=== PATIENT | male | born 1955 | race Caucasian/White ===

== ENCOUNTER 2018-10-24 16:51 | Emergency (ER) | payer OTHER ==
[2018-10-24 17:11] VITALS: BP 132/88
[2018-10-24] MEDS ORDERED: Ketorolac INJ* 30 MG/ML 1 ML VIAL IM ONE (17:46)
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
[2018-10-24] MEDS: Cyclobenzaprine TAB* 10 MG PO ONE ×2 (18:38→18:46)
--- NOTE | 2018-10-25 15:43 | UC ---
- Progress Note Progress Note: xrays negative. no change. Course/Dx - Diagnoses Provider Diagnoses: Neck muscle strain, Shoulder pain, right, Degenerative disc disease, cervical Discharge - Sign-Out/Discharge Documenting (check all that apply): Post-Discharge Follow Up All imaging exams completed and their final reports reviewed: Yes - Discharge Plan Condition: Stable Disposition: HOME Prescriptions: Cyclobenzaprine TAB* [Flexeril 10 MG TAB*] 10 mg PO TID PRN #20 tab PRN Reason: Spasms - Neck methylPREDNISolone [Medrol Dosepak 4 MG*] 4 mg PO .SEE BRITTANY INSTRUCTION #1 brittany Naproxen TAB* [Naprosyn 250 mg TAB*] 250 mg PO Q8H PRN #30 tab PRN Reason: neck pain Patient Education Materials: Degenerative Disc Disease (ED) Referrals: Giorgio Aquino MD [Primary Care Provider] - 3 Days Additional Instructions: 1- Please take Naproxen PO as directed after meals for pain. Take Medrol dose brittany as directed to alleviate symptoms 2- Take Flexeril PO as directed for muscle spasm. Please do not drive while taking the medication. 3- Avoid strenuous exercise of heavy lifting. 4- Please follow up with your PCP or your Neurologist in 1 week if not improvement of symptoms, for further management. - Billing Disposition and Condition Condition: STABLE Disposition: Home
== END 2018-10-24 18:49 | disposition home or self-care (01) ==
LOC: UCEAST 16:51
DX: S16.1XXA Strain of muscle, fascia and tendon at neck level, initial encounter (principal); W50.1XXA Accidental kick by another person, initial encounter; Y92.159 Unspecified place in reform school as the place of occurrence of the external cause; Y99.0 Civilian activity done for income or pay; M50.322 Other cervical disc degeneration at C5-C6 level; M25.511 Pain in right shoulder; F41.9 Anxiety disorder, unspecified; Z87.891 Personal history of nicotine dependence
CPT/HCPCS: 72050; 96372; 99202; A9270-GY; G0463; J1885

== ENCOUNTER 2023-04-08 11:10 | Inpatient (IN) ==
[2023-04-08 11:57] LABS: ABS Eosinophils 0.1 10^3/uL (0.0-0.5); ABS Lymphocytes 1.2 10^3/uL (1.0-4.8); ABS Monocytes 0.6 10^3/uL (0.0-1.1); ABS Nucleated RBC 0.02 10^3/ul; Hematocrit 37.3 % (38-53); Hemoglobin 12.3 g/dL (13.2-16.3); Lymphocyte % 15.3 %; Mean Corpuscular Hemoglobin 31.9 pg (27-33); Mean Corpuscular Volume 96.6 fL (80-97); Mean Platelet Volume 6.9 fL (7.5-11.2); Nucleated Red Blood Cells % 0.2 /100 WBC (0.0-0.4); Platelet Count 307 10^3/uL (150-450); Red Blood Count 3.86 10^6/uL (4.06-5.63); Red Cell Distribution Width 14.3 % (12-17); White Blood Count 7.9 10^3/uL (3.6-10.2)
[2023-04-08 12:37] LABS: Albumin 4.3 g/dL (3.2-5.2); Albumin/Globulin Ratio 1.5 (1-3); Calcium 9.4 mg/dL (8.6-10.3); Creatinine, Serum 1.09 mg/dL (0.67-1.17); Globulin 2.8 g/dL (2-4); Potassium 4.7 mmol/L (3.5-5.0); Total Bilirubin 0.2 mg/dL (0.2-1.0); Total Protein 7.1 g/dL (6.4-8.9); eGFR CKD-EPI 74.9 (>60)
[2023-04-08] MEDS ORDERED: Iohexol 350 (CONTRAST) 500 ML MDV IV ONE (12:54)
[2023-04-08 13:35] LABS: High Sensitivity Troponin 1 Hr 130 pg/mL (<20)
[2023-04-08] MEDS: Heparin DRIP 25,000 UNITS BAG 25,000 UNITS/500 ML BAG IV SCH (14:27)
[2023-04-08] MEDS: Heparin 5000 UNITS/ML 1 mL VIAL IV SCH (14:28)
[2023-04-08 15:18] LABS: Creatinine, Serum 0.91 mg/dL (0.67-1.17)
[2023-04-08] MEDS: Venlafaxine XR 75 mg PO SCH (21:35)
[2023-04-09 02:55] LABS: ABS Eosinophils 0.1 10^3/uL (0.0-0.5); ABS Monocytes 0.5 10^3/uL (0.0-1.1); ABS Neutrophils 3.2 10^3/uL (1.5-7.6); ABS Nucleated RBC 0.02 10^3/ul; Eosinophil % 2.2 %; Hematocrit 31.6 % (38-53); Hemoglobin 10.5 g/dL (13.2-16.3); Lymphocyte % 34.8 %; Mean Corpuscular Hemoglobin 31.9 pg (27-33); Mean Corpuscular Hgb Conc 33.4 g/dL (31-36); Mean Corpuscular Volume 95.5 fL (80-97); Mean Platelet Volume 6.6 fL (7.5-11.2); Nucleated Red Blood Cells % 0.4 /100 WBC (0.0-0.4); Platelet Count 246 10^3/uL (150-450); Red Cell Distribution Width 14.4 % (12-17); White Blood Count 5.8 10^3/uL (3.6-10.2)
[2023-04-09 03:07] LABS: Calcium 8.3 mg/dL (8.6-10.3); Potassium 3.9 mmol/L (3.5-5.0)
[2023-04-09 03:12] LABS: Creatinine, Serum 0.77 mg/dL (0.67-1.17); eGFR CKD-EPI 98.7 (>60)
[2023-04-09] MEDS ORDERED: Benzocaine (plain) Lozenge 15 MG MT PRN (07:24)
[2023-04-09] MEDS: Heparin DRIP 25,000 UNITS BAG 25,000 UNITS/500 ML BAG IV SCH (08:14)
[2023-04-09] MEDS: Venlafaxine XR 75 mg PO SCH ×2 (08:20→22:14)
[2023-04-09] MEDS ORDERED: Venlafaxine XR 75 mg PO SCH (09:00)
[2023-04-09] MEDS: Heparin 5000 UNITS/ML 1 mL VIAL IV SCH (10:36)
[2023-04-09 10:44] LABS: % Iron Saturation 4 % (15-55); .Transferrin 384 mg/dL (203-362); Iron 22 ug/dL (50-212); Total Iron Binding Capacity 538 mcg/dL (250-450); Unsaturated Iron Binding 516 ug/dL
[2023-04-09 10:51] LABS: Hematocrit 34.4 % (38-53); Hemoglobin 11.6 g/dL (13.2-16.3)
[2023-04-09 11:06] LABS: Ferritin 19.5 ng/mL (24-336)
[2023-04-09 11:09] LABS: Folate > 20.00 ng/mL (5.90-24.80)
[2023-04-09 11:10] LABS: Vitamin B12 638 pg/mL (180-914)
[2023-04-09] MEDS ORDERED: NS 0.9% 500 ml BAG 500 ML IV ONE (12:42)
[2023-04-09] MEDS: Iron Sucrose 200 MG in NS 0.9% 100 ml BAG 100 ML IVPB SCH (16:19)
[2023-04-09 18:34] LABS: HDL Cholesterol 50.1 mg/dL
[2023-04-09 18:38] LABS: INR 1.42 (0.88-1.18)
[2023-04-09] MEDS ORDERED: Enoxaparin 80 MG/0.8 ML SYR SUBCUT ONE (21:00)
[2023-04-10 05:59] LABS: ABS Eosinophils 0.1 10^3/uL (0.0-0.5); ABS Monocytes 0.5 10^3/uL (0.0-1.1); ABS Neutrophils 4.3 10^3/uL (1.5-7.6); ABS Nucleated RBC 0.03 10^3/ul; Corrected Retic Count 1.2 % (0.5-1.5); Eosinophil % 1.3 %; Hematocrit 33.9 % (38-53); Hematocrit for Retic CNT 33.9 % (38-53); Hemoglobin 11.4 g/dL (13.2-16.3); Immature Retic Fraction 0.61; Lymphocyte % 28.9 %; Mean Corpuscular Hemoglobin 32.1 pg (27-33); Mean Corpuscular Hgb Conc 33.6 g/dL (31-36); Mean Corpuscular Volume 95.8 fL (80-97); Mean Platelet Volume 6.8 fL (7.5-11.2); Nucleated Red Blood Cells % 0.4 /100 WBC (0.0-0.4); Platelet Count 265 10^3/uL (150-450); RBC Retic Count 3.53 10^6/ul (4.06-5.63); Red Blood Count 3.53 10^6/uL (4.06-5.63); Red Cell Distribution Width 13.9 % (12-17); White Blood Count 6.9 10^3/uL (3.6-10.2)
[2023-04-10 06:30] LABS: Creatinine, Serum 0.96 mg/dL (0.67-1.17); Potassium 4.3 mmol/L (3.5-5.0)
[2023-04-10 06:31] LABS: Albumin 3.5 g/dL (3.2-5.2); Albumin/Globulin Ratio 1.4 (1-3); Globulin 2.5 g/dL (2-4); Total Bilirubin 0.4 mg/dL (0.2-1.0); eGFR CKD-EPI 87.2 (>60)
[2023-04-10] MEDS: NS 0.9% 1000 ml BAG 1,000 ML IV SCH ×2 (07:45→12:51)
[2023-04-10] MEDS ORDERED: fentaNYL 100 mcg/2 ml 50 MCG/ML VIAL IV SLOW PU ONE (08:38)
[2023-04-10] MEDS ORDERED: Naloxone 0.4 mg VIAL 0.4 mg/ml 1 ml VIAL IV PUSH PRN (08:38)
[2023-04-10] MEDS ORDERED: Flumazenil 0.5 mg/5 ml 0.1 MG/ML 5 ml VIAL IV PRN (08:38)
[2023-04-10] MEDS ORDERED: Midazolam 10 mg/10 ml VIAL 1 mg/ml 10 ml VIAL (10 mg) IV SLOW PU ONE (08:38)
[2023-04-10] MEDS ORDERED: Midazolam 5 mg/5 ml VIAL 1 mg/ml 5 ml VIAL (5 mg) ONE (08:49)
[2023-04-10] MEDS ORDERED: Lidocaine 1% MPF 5 ML VIAL ONE (08:50)
[2023-04-10] MEDS ORDERED: Heparin 2 UNITS/ML 1000 mls 2,000 ML IV ONE (08:50)
[2023-04-10] MEDS ORDERED: niCARdipine 0.1MG/ML IVPREMIX 20 MG/200 ML BAG IV ONE (08:50)
[2023-04-10] MEDS ORDERED: nitroGLYCERIN DRIP 25,000 MCG/250 ML BTL ONE (08:50)
[2023-04-10] MEDS ORDERED: fentaNYL 100 mcg/2 ml 50 MCG/ML VIAL ONE (08:50)
[2023-04-10] MEDS ORDERED: Iohexol 350 (CONTRAST) 100 ML PAK IV ONE ×2 (08:50→09:36)
[2023-04-10] MEDS ORDERED: Heparin 1,000 UNIT/ML 10 ml (10,000 UNITS) CATHLAB/DIALYSIS ONE (08:54)
[2023-04-10] MEDS: Venlafaxine XR 75 mg PO SCH ×2 (12:52→22:14)
[2023-04-10] MEDS: Iron Sucrose 200 MG in NS 0.9% 100 ml BAG 100 ML IVPB SCH (15:58)
[2023-04-10] MEDS ORDERED: Heparin DRIP 25,000 UNITS BAG 25,000 UNITS/500 ML BAG IV SCH (17:45)
[2023-04-10 18:18] LABS: ABS Basophils 0.1 10^3/uL (0.0-0.1); ABS Eosinophils 0.1 10^3/uL (0.0-0.5); ABS Lymphocytes 1.3 10^3/uL (1.0-4.8); ABS Monocytes 0.4 10^3/uL (0.0-1.1); ABS Neutrophils 5.6 10^3/uL (1.5-7.6); ABS Nucleated RBC 0.03 10^3/ul; Eosinophil % 0.9 %; Hematocrit 35.7 % (38-53); Hemoglobin 12.1 g/dL (13.2-16.3); Mean Corpuscular Hemoglobin 31.8 pg (27-33); Mean Corpuscular Hgb Conc 33.8 g/dL (31-36); Mean Platelet Volume 6.8 fL (7.5-11.2); Nucleated Red Blood Cells % 0.4 /100 WBC (0.0-0.4); Platelet Count 329 10^3/uL (150-450); Red Blood Count 3.79 10^6/uL (4.06-5.63); Red Cell Distribution Width 14.1 % (12-17); White Blood Count 7.5 10^3/uL (3.6-10.2)
[2023-04-10 18:34] LABS: Creatinine, Serum 0.85 mg/dL (0.67-1.17); eGFR CKD-EPI 95.8 (>60)
[2023-04-11 05:54] LABS: ABS Eosinophils 0.1 10^3/uL (0.0-0.5); ABS Lymphocytes 1.2 10^3/uL (1.0-4.8); ABS Monocytes 0.5 10^3/uL (0.0-1.1); ABS Neutrophils 6.6 10^3/uL (1.5-7.6); ABS Nucleated RBC 0.01 10^3/ul; Eosinophil % 1.2 %; Hematocrit 36.1 % (38-53); Hemoglobin 12.1 g/dL (13.2-16.3); Lymphocyte % 13.9 %; Mean Corpuscular Hemoglobin 31.2 pg (27-33); Mean Corpuscular Hgb Conc 33.5 g/dL (31-36); Mean Corpuscular Volume 93.3 fL (80-97); Mean Platelet Volume 6.6 fL (7.5-11.2); Nucleated Red Blood Cells % 0.1 /100 WBC (0.0-0.4); Platelet Count 281 10^3/uL (150-450); Red Blood Count 3.87 10^6/uL (4.06-5.63); Red Cell Distribution Width 13.6 % (12-17); White Blood Count 8.4 10^3/uL (3.6-10.2)
[2023-04-11] MEDS: Venlafaxine XR 75 mg PO SCH ×2 (09:07→20:56)
[2023-04-11] MEDS ORDERED: Furosemide 20 mg/2 ml IV VIAL IV SLOW PU ONE (10:32)
[2023-04-11 10:51] LABS: ALT 109 U/L (7-52); AST 53 U/L (13-39)
[2023-04-11] MEDS: HYDROcodone/ACETAMIN 5/325 mg TAB PO PRN ×2 (12:46→20:55)
[2023-04-11 13:46] LABS: Hepatitis B Surface Antigen Nonreactive (Nonreactive)
[2023-04-11 13:51] LABS: Hepatitis A Ab IgM Negative (Negative)
[2023-04-11 13:52] LABS: Hepatitis B Core IgM Nonreactive (Nonreactive)
[2023-04-11 14:03] LABS: Hepatitis C Antibody Negative (Negative)
[2023-04-11] MEDS ORDERED: Metoprolol Tartrate 5 mg VIAL 5 ml VIAL (1 mg/ml) IV ONE (14:27)
[2023-04-11] MEDS: Iron Sucrose 200 MG in NS 0.9% 100 ml BAG 100 ML IVPB SCH (15:09)
[2023-04-11 16:00] LABS: Hematocrit 37.2 % (38-53); Hemoglobin 12.5 g/dL (13.2-16.3)
[2023-04-12] MEDS: HYDROcodone/ACETAMIN 5/325 mg TAB PO PRN ×3 (06:16→20:35)
[2023-04-12 07:00] LABS: ABS Monocytes 0.5 10^3/uL (0.0-1.1); ABS Neutrophils 7.1 10^3/uL (1.5-7.6); ABS Nucleated RBC 0.02 10^3/ul; Eosinophil % 0.6 %; Hematocrit 37.9 % (38-53); Hemoglobin 12.6 g/dL (13.2-16.3); Lymphocyte % 11.9 %; Mean Corpuscular Hemoglobin 30.9 pg (27-33); Mean Corpuscular Hgb Conc 33.3 g/dL (31-36); Mean Corpuscular Volume 92.7 fL (80-97); Mean Platelet Volume 6.9 fL (7.5-11.2); Nucleated Red Blood Cells % 0.2 /100 WBC (0.0-0.4); Platelet Count 330 10^3/uL (150-450); Red Blood Count 4.09 10^6/uL (4.06-5.63); Red Cell Distribution Width 14.1 % (12-17); White Blood Count 8.7 10^3/uL (3.6-10.2)
[2023-04-12 07:14] LABS: Albumin 3.5 g/dL (3.2-5.2); Albumin/Globulin Ratio 1.4 (1-3); Calcium 8.8 mg/dL (8.6-10.3); Creatinine, Serum 0.83 mg/dL (0.67-1.17); Globulin 2.5 g/dL (2-4); Potassium 3.6 mmol/L (3.5-5.0); Total Bilirubin 0.5 mg/dL (0.2-1.0); eGFR CKD-EPI 96.5 (>60)
[2023-04-12] MEDS: Venlafaxine XR 75 mg PO SCH ×2 (09:38→20:37)
[2023-04-12] MEDS: Iron Sucrose 200 MG in NS 0.9% 100 ml BAG 100 ML IVPB SCH (16:23)
[2023-04-12] MEDS ORDERED: Calcium Carb (TUMS) 500 mg CHEW TAB PO ONE (21:52)
[2023-04-13 08:33] LABS: ABS Eosinophils 0.1 10^3/uL (0.0-0.5); ABS Lymphocytes 1.1 10^3/uL (1.0-4.8); ABS Monocytes 0.5 10^3/uL (0.0-1.1); ABS Neutrophils 5.5 10^3/uL (1.5-7.6); Eosinophil % 0.7 %; Hematocrit 39.4 % (38-53); Hemoglobin 13.2 g/dL (13.2-16.3); Lymphocyte % 14.7 %; Mean Corpuscular Hemoglobin 31.6 pg (27-33); Mean Corpuscular Hgb Conc 33.5 g/dL (31-36); Mean Corpuscular Volume 94.5 fL (80-97); Mean Platelet Volume 6.5 fL (7.5-11.2); Nucleated Red Blood Cells % 0.1 /100 WBC (0.0-0.4); Platelet Count 328 10^3/uL (150-450); Red Blood Count 4.17 10^6/uL (4.06-5.63); Red Cell Distribution Width 13.8 % (12-17); White Blood Count 7.1 10^3/uL (3.6-10.2)
[2023-04-13 08:43] LABS: Creatinine, Serum 0.8 mg/dL (0.67-1.17); Magnesium 1.9 mg/dL (1.9-2.7); Potassium 3.9 mmol/L (3.5-5.0); eGFR CKD-EPI 97.6 (>60)
[2023-04-13] MEDS: Venlafaxine XR 75 mg PO SCH ×2 (10:21→20:37)
[2023-04-13] MEDS: HYDROcodone/ACETAMIN 5/325 mg TAB PO PRN ×2 (10:28→20:41)
[2023-04-13] MEDS: Iron Sucrose 200 MG in NS 0.9% 100 ml BAG 100 ML IVPB SCH (16:31)
[2023-04-14] MEDS ORDERED: NS 0.9% 1000 ml BAG 1,000 ML IV ONE (07:00)
[2023-04-14] MEDS: Venlafaxine XR 75 mg PO SCH (09:19)
[2023-04-14 11:26] VITALS: BP 150/78
[2023-04-14] MEDS ORDERED: Midazolam 10 mg/10 ml VIAL 1 mg/ml 10 ml VIAL (10 mg) IV SLOW PU ONE (11:46)
[2023-04-14] MEDS ORDERED: fentaNYL 100 mcg/2 ml 50 MCG/ML VIAL IV SLOW PU ONE (11:46)
== END 2023-04-14 13:49 | disposition home or self-care (01) | DRG 175 ==
LOC: EDHOLD 11:10 → ED 11:10 → OBSVTOIN 14:28 → SUATTDRO 14:28 → EDHOLD 16:50 → MED 18:06 → MEDTELE 04-12 06:20
PROVIDERS: ADMIT Internal Medicine; ATTEND Internal Medicine